=== PATIENT | female | born 1935 | race Caucasian/White ===

== ENCOUNTER 2018-04-13 11:55 | Inpatient (IN) | payer OTHER ==
[~2018-04-13] VITALS: Ht 160 cm; Wt 80.3 kg
[2018-04-13 12:02] VITALS: BP 169/71
[2018-04-13] MEDS ORDERED: GLUCOTROL5 MG PO (12:10)
[2018-04-13] MEDS ORDERED: METFORMIN HCL500 MG PO (12:10)
[2018-04-13] MEDS ORDERED: LISINOPRIL10 MG PO (12:11)
[2018-04-13] MEDS ORDERED: ASPIR 8181 MG PO (12:24)
[2018-04-13] MEDS ORDERED: LOPRESSOR50 PO (12:25)
[2018-04-13] MEDS ORDERED: COZAAR 25 MG TA25 M1 PO (12:25)
[2018-04-13] MEDS ORDERED: ATORVASTATIN CA40 MG PO (12:26)
[2018-04-13] MEDS ORDERED: AMLODIPINE BESY10 MG PO (12:27)
[2018-04-13 12:40] LABS: ABSOLUTE EOSINOPHILS 0.2 thou/uL (0.0-0.7); ABSOLUTE LYMPHOCYTES 2.7 thou/uL (0.8-5.3); ABSOLUTE NEUTROPHILS 6.7 thou/uL (1.6-8.1); BASOPHILS 0.1 %; EOSINOPHILS 1.5 %; HEMATOCRIT 34.7 % (37.0-47.0); HEMOGLOBIN 11.4 gm/dL (12.0-15.0); LYMPHOCYTES 25.7 %; MCH 26.9 pg (26.0-34.0); MCHC 32.7 g/dL (28.0-37.0); MCV 82.1 fL (80.0-100.0); MONOCYTES 9.4 %; MPV 9.5 fl. (7.2-11.1); NUCLEATED RBCS 0 /100WBC; PLATELET COUNT* 237 thou/uL (150-400); POLYS 63.3 %; RBC 4.23 mil/uL (4.20-5.00); WBC 10.6 thou/uL (4.0-11.0)
[2018-04-13 12:43] LABS: CALCIUM 8.8 mg/dL (8.5-10.1); CREATININE 1.2 mg/dL (0.6-1.3); POTASSIUM 4.4 mmol/L (3.5-5.1)
[2018-04-13 12:48] LABS: ALBUMIN 3.3 g/dL (3.4-5.0); TOTAL BILIRUBIN 0.4 mg/dL (<0.1-1.0); TOTAL PROTEIN 7.2 g/dL (6.4-8.2)
[2018-04-13 13:38] LABS: APTT 26.1 Seconds (25.0-31.3)
[2018-04-13 13:40] VITALS: BP 122/65
[2018-04-13 13:41] VITALS: BP 150/73
--- NOTE | 2018-04-13 13:59 | NUR ---
RECEIVED REPORT FROM Glenda STACK AT 1319. LABS AND Glenda REPORT REVIEWED. PT ARRIVED VIA CART AT 1330. PT SETTLED IN BED, EDUCATED ON ROOM, DAUGHTER AT BEDSIDE. VS TAKEN AND ADMISSION TO BE COMPLETED. IV IN LEFT WRIST PATENT WITH VANCO INFUSING. HOURLY ROUNDING TO START.
--- NOTE | 2018-04-13 18:59 | NUR ---
PT IN BED, BED IN LOW LOCKED POSITION, CALL BUTTON AND PERSONAL ITEMS IN PT REACH. PT EDUCATED ON ROOM. ADMISSION COMPLETED. PT A&O X4, UP SBA, INDEPENDENT AT [facility]. HRRR PER AUSCULTATION, LCTAB, AFEBRILE, PERRLA. SKIN TEAR ON LLE FROM HITTING BED FRAME AT HOME 3-4 DAYS AGO, HAS BECOME MORE SORE AND REDDENED. HURTS TO WALK ON LEFT LEG. CONSULTS INCLUDE DR. HERRERA/ICaryn IV IN LEFT WRIST PATENT TO FLUIDS AND FLUSH. 20 GAUGE. VSS ON RA. LEFT LEG DRESSED PER DR. HERRERA. HOURLY ROUNDING AND ACCU CHECKS COMPLETED. REPORT TO SOCIAL WORK ADMINISTRATOR FOR CONTINUED CARES.
[2018-04-13 21:00] VITALS: BP 130/63
[2018-04-14 03:08] LABS: GLYCOHEMOGLOBIN (HGB A1C) 7.7 % (4.8-5.6)
[2018-04-14 04:29] LABS: ABSOLUTE BASOPHILS 0.1 thou/uL (0.0-0.2); ABSOLUTE EOSINOPHILS 0.2 thou/uL (0.0-0.7); ABSOLUTE LYMPHOCYTES 2.5 thou/uL (0.8-5.3); ABSOLUTE MONOCYTES 0.8 thou/uL (0.0-1.2); ABSOLUTE NEUTROPHILS 4.6 thou/uL (1.6-8.1); BASOPHILS 0.9 %; EOSINOPHILS 2.9 %; LYMPHOCYTES 30.1 %; MCH 27.1 pg (26.0-34.0); MCHC 33.4 g/dL (28.0-37.0); MCV 81.1 fL (80.0-100.0); MONOCYTES 9.9 %; MPV 9.3 fl. (7.2-11.1); NUCLEATED RBCS 0 /100WBC; PLATELET COUNT* 224 thou/uL (150-400); POLYS 56.2 %; WBC 8.1 thou/uL (4.0-11.0)
[2018-04-14 04:41] LABS: CALCIUM 7.9 mg/dL (8.5-10.1); POTASSIUM 4.6 mmol/L (3.5-5.1)
--- NOTE | 2018-04-14 06:38 | NUR ---
PATIENT SLEPT MOST OF THE NIGHT. IV VANC WAS GIVEN ORDERED. PATIENT HAD NO COMPLAINTS OF PAIN. WILL CONTINUE TO MONITOR.
[2018-04-14 07:40] VITALS: BP 168/62
--- NOTE | 2018-04-14 12:30 | CON ---
[address] [address] CONSULTATION Name: OSMANJEBHORTENCIA Room: [address] IN M.R.#: [id number] Admission: 04/13/18 Attend Phys: Garland Yip MD Discharge: Date of : 37 Report #: [id number] THIS REPORT FOR: //name// CC: Garland Yip [facility] physician/PCP DATE OF SERVICE: 04/13/2018 ATTENDING PHYSICIAN: Garland Yip M.D. REASON FOR CONSULTATION: Inflammatory eruption involving the left lower extremity in the setting of recent injury. HISTORY OF PRESENT ILLNESS: Chart reviewed, the patient examined. This is a woman with diabetes mellitus type 2, who was walking and struck her leg on the corner of the bed on 04/10/2018. Initially, there was not significant amount of bleeding. Had developed increasing inflammation now. Pain associated with the site on her mid pretibial lateral aspect of her leg. Denies any systemic illness, including fevers or chills. Appetite has been good. No pulmonary or gastrointestinal-related complaints. Had been evaluated and was given antibiotics apparently "did not work". Blood cultures are in progress. Ultrasound to exclude DVT was undertaken, which confirmed its absence. She was given a dose of vancomycin. ALLERGIES: None known. CURRENT MEDICATIONS: Include vancomycin, atorvastatin, enoxaparin, metformin, glipizide, losartan, metoprolol, aspirin, pantoprazole, hydralazine and ondansetron. PAST MEDICAL HISTORY: Diabetes mellitus type 2, hypertension and previous cholecystectomy. SOCIAL HISTORY: Nonsmoker. No ethanol. FAMILY HISTORY: Noncontributory. REVIEW OF SYSTEMS: As above. PHYSICAL EXAMINATION: GENERAL: She is pleasant, alert and cooperative, in mild distress. She is not encephalopathic. VITAL SIGNS: Temperature 97.3, pulse 72, respirations 16 and blood pressure 150/73. SKIN: Warm, dry, no rashes. HEENT: [place] [address] CONSULTATION Name: MELBA BREWER Room: [address] IN ..#: [id number] Admission: 04/13/18 Attend Phys: Garland Yip MD Discharge: Date of : 37 Report #: [id number] NECK: Supple. LUNGS: Clear breath sounds. HEART: Regular. I do not appreciate a murmur. ABDOMEN: Soft, nontender and nondistended. EXTREMITIES: Left lower extremity lateral aspect has marked inflammatory changes noted. It is palpably tender, especially posteriorly. There is a superficial ulcer noted. There is no overt purulence, although there is some necrotic tissue within the wound. GENITOURINARY: Deferred. RECTAL: Deferred. LABORATORY DATA: CBC: White count 7.6, H and H 11.4 and 34.7 and platelets of 237,000. Electrolytes: Sodium 138, potassium 4.4, chloride 105, bicarbonate is 24, anion gap of 7, BUN and creatinine 17 and 1.2 and glucose of 119. Albumin of 3.3. Total protein of 7.2. Lactic acid 3.2, repeat was 2.7. ASSESSMENT AND PLAN: Left lower extremity skin and soft tissue infection, likely is undergoing venous stasis insufficiency. I suspect dermatitis as well. We will continue the vancomycin. Presume a staph or strep etiology. Encourage elevation. We will add compression former to utilizing a single-layer Tubigrip at this point and see how she does over the course of the next 24-48 hours. <ELECTRONICALLY SIGNED> By: Dayne Marshall MD 04/14/18 1230 1727 [id number] Marshall MD /nt
--- NOTE | 2018-04-14 12:35 | NUR ---
SW met with pt to complete initial assessment, introduce self, and SW role. Pt alert, oriented, pleasant. Pt lives in [facility] at [facility]. Pt does not have any DME or history of HH or SNF. Pt has 2 sons and a dtr in law in the area. Pt recently moved to this area from [place]. SW to continue to follow to assist with safe dc planning.
--- NOTE | 2018-04-14 12:59 | EKG ---
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 BLOUNT : 1935 Requested By: Charly Carlson Order Number: [id number] MD: Malik Saleh Measurements Intervals [place] Rate: 79 P: 57 WV: 132 QRS: -12 QRSD: 90 T: 6 QT: 389 QTc: 447 Interpretive Statements Sinus rhythm Low voltage, precordial leads Consider anterior infarct Borderline T abnormalities, inferior leads Baseline wander in lead(s) II,III,aVF No previous ECG available for comparison Electronically Signed On 04-14-2018 12:59:22 CDT by Malik Saleh [email or web address] <ELECTRONICALLY SIGNED> By: Malik Saleh MD, [facility] 04/14/18 1259 1215 1215 Malik Saleh MD, [facility] /EPI
[2018-04-14 16:25] VITALS: BP 152/67
--- NOTE | 2018-04-14 17:20 | NUR ---
PATIENT RESTING IN BED WITH LEFT LEG ELEVATED ON PILLOW. PATIENT IS UP STANDBY ASSIST IN ROOM. PATIENT DENIES ANY PAIN. TUBIGRIP APPLIED TO LEFT LOWER LEG. DRESSING TO LLE CHANGED THIS AFTERNOON. PATIENT HAS GOOD APPETITE. PATIENT DENIES ANY NEEDS AT THIS TIME. CALL LIGHT WITHIN REACH. WILL CONTINUE TO MONITOR.
[2018-04-14 20:30] VITALS: BP 141/62
--- NOTE | 2018-04-15 04:26 | NUR ---
PATIENT HAS REMAINED ALERT AND ORIENTED X 4 THROUGHOUT THE SHIFT AND RESTING QUIETLY ON HOURLY ROUNDS. UP WITH STEADY GAIT IN ROOM INDEPENDENTLY. DRESSING LLE CLEAN AND DRY. PATIENT ELEVATING BILAT LOWER EXTREMITIES IN BED WITH A PILLOW. IV ANTIBIOTIC PER ORDERS PROVIDED. VITAL SIGNS STABLE. CONTINUE TO MONITOR.
[2018-04-15 08:15] VITALS: BP 161/74
[2018-04-15] MEDS ORDERED: MINOCIN100 MG PO (08:34)
[2018-04-15 10:29] VITALS: BP 161/74
--- NOTE | 2018-04-15 11:52 | NUR ---
PT'S MEDICAL CHART REVIEWED AND STATUS DISCUSSED W/ NSG. PT IS UP AD DEENA IN ROOM WITH STABLE GAIT AND TRANSFERS. PT DEMO SLIGHT ANTALGIC PATTERN W/ LLE HOWEVER NO LOB NOTED. PT DOES NOT FEEL ANY DME IS INDICATED AT THIS TIME. ENCOURAGED PT TO OBTAIN PRESCRIPTION FROM PCP IF SHE FEELS A CANE OR WALKER IS INDICATED UPON RETURN TO [place]. NO FURTHER ACUTE PT SERVICES ARE INDICATED.
--- NOTE | 2018-04-15 12:12 | NUR ---
ORDERED HOME HEALTH FOR PT. DISCUSSED WITH PT. SHE IS AGREEABLE. SHE SAID SHE DOES NOT HAVE A PCP YET SHE JUST MOVED HERE ABOUT 7 DAYS AGO FROM [place]. LEFT MESSAGE FOR DAUGHTER,RUBY. [facility] CHECKING INSURANCE TO SEE IF THEY TAKE. THEY SAID HAS AN OFFICE ON CAMPUS. SHE MAY BE ABLE TO SIGN HOME HEALTH PAPERS. WILL AWAIT CALL BACK FROM DAUGHTER AND [place] .
--- NOTE | 2018-04-15 13:00 | NUR ---
DAUGHTER SAID PT.HAS DISENROLLED WITH [place] AND WILL HAVE MEDICARE PRIMARY AND SEDONDARY INSURANCE. [facility]ON [facility]22 HER NEW PCP. DISCUSSED WITH [facility]. SHE SAID WOULD MAKE A HOME VISIT NEXT WEEK IF PT.INTERESTED. GAVE CM NUMBER TO CALL. PT.CAN GO TO [facility] FOR DRESSING CHANGES IF SHE BRINGS ORDER AND SUPPLIES. THEY ARE OPEN 9:30- 11:00. ALL INFORMATION PUT ON DISCHARGE INSTRUCTIONS AND DISCUSSED WIHTPT.AND DAUGHTER. GAVE DAUGHTER COPY OF DSG.CHANGE ORDERS.
--- NOTE | 2018-04-15 14:58 | NUR ---
PATIENT AND DAUGHTER IN LAW GIVEN DISCHARGE INSTRUCTIONS AND PRESCRIPTIONS AT THIS TIME. WOUND CARE INSTRUCITONS DISCUSSED WITH PATIENT AND PATIENT'S DAUGHTER IN LAW. PATIENT'S IV DISCONTINUED. PATIENT AND DAUGHTER IN LAW VERBALIZED UNDERSTANDING AND DISCHARGED TO HOME WITH ALL BELONGINGS. ESCORTED OFF NURSING UNIT VIA WHEELCHAIR.
== END 2018-04-15 15:02 | disposition home health service (06) | DRG 638 ==
LOC: M.ERS 11:55 → M.TBA-ER 12:45 → M.ORTHSURG 12:45
PROVIDERS: Family Medicine; ADMIT Internal Medicine
DX: E11.622 Type 2 diabetes mellitus with other skin ulcer (principal); L03.116 Cellulitis of left lower limb; R65.10 Systemic inflammatory response syndrome (SIRS) of non-infectious origin without acute organ dysfunction; E11.628 Type 2 diabetes mellitus with other skin complications; Z90.49 Acquired absence of other specified parts of digestive tract; Z79.2 Long term (current) use of antibiotics; Z79.899 Other long term (current) drug therapy; Z79.82 Long term (current) use of aspirin